=== PATIENT | female | born 1995 | race Caucasian/White ===

== ENCOUNTER 2018-09-03 06:58 | Inpatient (IN) | payer OTHER ==
[~2018-09-03] VITALS: Ht 165.1 cm; Wt 64.8 kg
[~2018-09-03 06:58] MED LIST: CEPH500 PO; IBUP600 PO; IBUP800 PO; PROCODE120 PO; RXCYCL10 PO; Robaxin500 MG PO; TOBR.3OPSO OP
[2018-09-03] MEDS ORDERED: EXPECTA PRENAT1 EACH (07:50)
[2018-09-03] MEDS ORDERED: IRON150C (07:51)
[2018-09-03 08:15] LABS: BASOPHILS ABSOLUTE AUTO 0.02 K/mm3 (0.00-0.23); BASOPHILS PERCENT AUTO 0 % (0-2); EOSINOPHILS ABSOLUTE AUTO 0.07 K/mm3 (0.00-0.68); EOSINOPHILS PERCENT AUTO 0 % (0-6); Hematocrit 35.2 % (33.0-51.0); Hemoglobin 11.9 g/dL (11.5-16.0); IMMATURE GRAN PERCENT AUTO 1 % (0-1); LYMPHOCYTES ABSOLUTE AUTO 1.61 K/mm3 (0.84-5.20); LYMPHOCYTES PERCENT AUTO 9 % (21-46); MONOCYTES ABSOLUTE AUTO 1.18 K/mm3 (0.16-1.47); MONOCYTES PERCENT AUTO 6 % (4-13); Mean Corpuscular HGB 33.3 pg (26.0-34.0); Mean Corpuscular HGB Conc 33.8 g/dL (31.5-36.5); Mean Corpuscular Volume 99 fL (80-100); Mean Platelet Volume 11.7 fL (9.1-12.4); NEUTROPHILS ABSOLUTE AUTO 15.95 K/mm3 (1.96-9.15); NEUTROPHILS PERCENT AUTO 84 % (41-73); Platelet Count 236 K/mm3 (150-400); RDW Coefficient Variation 13.5 % (11.7-14.2); Red Blood Cell Count 3.57 M/mm3 (3.80-5.20); White Blood Cell Count 18.93 K/mm3 (4.00-11.30)
[2018-09-04 05:29] LABS: BASOPHILS ABSOLUTE AUTO 0.02 K/mm3 (0.00-0.23); BASOPHILS PERCENT AUTO 0 % (0-2); EOSINOPHILS ABSOLUTE AUTO 0.12 K/mm3 (0.00-0.68); EOSINOPHILS PERCENT AUTO 1 % (0-6); Hematocrit 30.8 % (33.0-51.0); Hemoglobin 10.1 g/dL (11.5-16.0); IMMATURE GRAN ABSOLUTE AUTO 0.08 K/mm3 (0.00-0.10); IMMATURE GRAN PERCENT AUTO 1 % (0-1); LYMPHOCYTES ABSOLUTE AUTO 2.52 K/mm3 (0.84-5.20); LYMPHOCYTES PERCENT AUTO 16 % (21-46); MONOCYTES ABSOLUTE AUTO 0.97 K/mm3 (0.16-1.47); MONOCYTES PERCENT AUTO 6 % (4-13); Mean Corpuscular HGB 33.4 pg (26.0-34.0); Mean Corpuscular HGB Conc 32.8 g/dL (31.5-36.5); Mean Platelet Volume 11.3 fL (9.1-12.4); NEUTROPHILS PERCENT AUTO 77 % (41-73); Platelet Count 194 K/mm3 (150-400); RDW Coefficient Variation 13.8 % (11.7-14.2); RDW Standard Deviation 51.1 fL (35.1-46.3); Red Blood Cell Count 3.02 M/mm3 (3.80-5.20); White Blood Cell Count 15.81 K/mm3 (4.00-11.30)
[2018-09-04 05:35] LABS: Mean Corpuscular Volume 102 fL (80-100)
[2018-09-04] MEDS ORDERED: IBUP800 PO (08:23)
--- NOTE | 2018-09-04 14:55 | NUR ---
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 PT CHOOSE TO AMBULATE OUT, HAS BEEN OUT MANY TIMES TO SMOKE. DECLINES ANY QUESITONS, ENCOURAGED TO CALL DR NICOLE FOR ANYTHING, THIS IS A PRIVATE ADOPTION, DISCUSSED DEPRESSION AND COUNSELING IF NEEDS IT, TO FOLLOW UP WITH DR NICOLE IN 2 WEEKS
== END 2018-09-04 14:55 | disposition home or self-care (01) | DRG 807 ==
LOC: OBS 06:58 → BC 06:58 → OBS 07:31 → BC 07:31
PROVIDERS: ADMIT Obstetrics & Gynecology
PROC: 10E0XZZ Delivery of Products of Conception, External Approach (ICD-10-PCS; principal; 2018-09-03)
PROC: 3E0234Z Introduction of Serum, Toxoid and Vaccine into Muscle, Percutaneous Approach (ICD-10-PCS; 2018-09-03)
DX: O80 Encounter for full-term uncomplicated delivery (principal); Z37.0 Single live birth; Z3A.39 39 weeks gestation of pregnancy
CPT/HCPCS: 36415; 51702; 85025; J1885; J2001; J2210; J2590; J3010; J7120

== ENCOUNTER → 2019-10-16 | Outpatient (CLI) | payer OTHER ==
[~2019-10-16] MED LIST changes: +EXPECTA PRENAT1 EACH; +IRON150C
[2019-10-20 14:07] LABS: HPV 16 Positive (Negative); HPV 18 Negative (Negative); HPV OTHER HR TYPES Negative (Negative)
== END ==
LOC: LAB 16:40 → LAB SHORT 16:40
PROVIDERS: Obstetrics & Gynecology
DX: R87.610 Atypical squamous cells of undetermined significance on cytologic smear of cervix (ASC-US) (principal); R87.810 Cervical high risk human papillomavirus (HPV) DNA test positive
CPT/HCPCS: 87624; 88142

== ENCOUNTER 2020-08-21 11:52 | Emergency (ER) | payer OTHER ==
[~2020-08-21] VITALS: Ht 165.1 cm; Wt 58.1 kg
[2020-08-21] MEDS ORDERED: HYDR1TAB94 PO (14:14)
[2020-08-21] MEDS ORDERED: CEFP200 PO (14:14)
[2020-08-21] MEDS ORDERED: PROM25 PO (14:14)
[2020-08-21] MEDS ORDERED: IBUP600 PO (14:14)
[2020-08-21] MEDS ORDERED: ONDA4ODT MM (14:14)
== END 2020-08-21 14:33 | disposition home or self-care (01) ==
LOC: ER 11:52
DX: N12 Tubulo-interstitial nephritis, not specified as acute or chronic (principal); F17.210 Nicotine dependence, cigarettes, uncomplicated; Z91.02 Food additives allergy status
CPT/HCPCS: 74176; 96365; 96375; 99284-25; A9270; J0696; J2405; J7030

== ENCOUNTER 2024-03-01 17:27 | Observation (INO) | payer OTHER ==
[~2024-03-01] VITALS: Ht 165.1 cm; Wt 54.4 kg
[~2024-03-01 17:27] MED LIST changes: +CEFP200 PO; +HYDR1TAB94 PO; +ONDA4ODT MM; +PROM25 PO
[2024-03-01] MEDS ORDERED: NS 1,000 ML IV SCH ×2 (17:50→21:30)
[2024-03-01 18:49] LABS: BASOPHILS ABSOLUTE AUTO 0.04 K/mm3 (0.00-0.23); BASOPHILS PERCENT AUTO 0 % (0-2); EOSINOPHILS ABSOLUTE AUTO 0.29 K/mm3 (0.00-0.68); EOSINOPHILS PERCENT AUTO 3 % (0-6); Hematocrit 39.5 % (33.0-51.0); Hemoglobin 13.3 g/dL (11.5-16.0); IMMATURE GRAN ABSOLUTE AUTO 0.03 K/mm3 (0.00-0.10); IMMATURE GRAN PERCENT AUTO 0 % (0-1); LYMPHOCYTES ABSOLUTE AUTO 2.94 K/mm3 (0.84-5.20); LYMPHOCYTES PERCENT AUTO 26 % (21-46); MONOCYTES ABSOLUTE AUTO 0.88 K/mm3 (0.16-1.47); MONOCYTES PERCENT AUTO 8 % (4-13); Mean Corpuscular HGB 32.4 pg (26.0-34.0); Mean Corpuscular HGB Conc 33.7 g/dL (31.5-36.5); Mean Corpuscular Volume 96 fL (80-100); Mean Platelet Volume 10.9 fL (9.1-12.4); NEUTROPHILS PERCENT AUTO 64 % (41-73); Platelet Count 251 K/mm3 (150-400); RDW Coefficient Variation 12.5 % (11.7-14.2); RDW Standard Deviation 45.4 fL (35.1-46.3); White Blood Cell Count 11.48 K/mm3 (4.00-11.30)
[2024-03-01 19:04] LABS: Source, Urine Clean Catch
[2024-03-01 19:13] LABS: Appearance, Urine Hazy (Clear); Bilirubin, Urine Neg (Neg); Blood, Urine 2+ (Neg); Color, Urine Yellow (P-Yellow); Glucose Qualitative, Urine Neg (Neg); Ketones, Urine 1+ (Neg); Leukocyte Esterase, Urine 1+ (Neg); Nitrite, Urine Neg (Neg); Protein, Urine Neg (Neg); Specific Gravity, Urine 1.025 (1.003-1.022); Urobilinogen, Urine 1+ (Normal)
[2024-03-01 19:24] LABS: Calcium Oxalate Crystals Many /hpf; Hyaline Casts 0-2 /lpf (0-2); Mucus Light (0-Heavy)
[2024-03-01 19:25] LABS: Bacteria Few /hpf; Squamous Epithelial Cells Rare /hpf (Few)
[2024-03-01 19:41] LABS: Albumin, Blood 3.9 g/dL (3.4-5.0); Albumin/Globulin Ratio 1.4 (0.8-1.8); Bilirubin, Total 0.6 mg/dL (0.1-1.0); Bun/Creatinine Ratio 22.5 (12.0-20.0); Creatinine, Blood 0.58 mg/dL (0.40-1.00); Globulin, Blood 2.7 g/dL (2.2-4.0); Potassium, Blood 4.3 mmol/L (3.5-5.5); Total Protein, Blood 6.6 g/dL (6.4-8.2)
[2024-03-01] MEDS ORDERED: CefTRIAXone Sodium 1,000 MG in NS 50 ML IV ONE (21:40)
[2024-03-01] MEDS ORDERED: MetroNIDAZOLE 500 MG Tab PO ONE (21:40)
[2024-03-01] MEDS ORDERED: FentaNYL Citrate 50 MCG/ML 2 ML Injection IV ONE (22:20)
[2024-03-01] MEDS ORDERED: Acetaminophen 325 MG TABLET PO PRN (22:50)
[2024-03-01] MEDS ORDERED: OxyCODONE HCL 5 MG TAB PO PRN (22:50)
[2024-03-01] MEDS ORDERED: HYDROmorphone HCl/Pf 1MG SYR IV PRN (22:50)
[2024-03-01] MEDS ORDERED: Lactated Ringer's 1,000 ML IV SCH (22:55)
[2024-03-01] MEDS ORDERED: Ondansetron HCl 2 MG / ML 2ML Vial IV PRN (22:55)
[2024-03-01] MEDS ORDERED: Ketorolac Tromethamine 30mg Vial IV PRN (23:00)
[2024-03-01 23:30] VITALS: BP 122/82
[2024-03-01] MEDS ORDERED: AMOCLA875 PO (23:49)
== END 2024-03-01 23:57 | disposition left against medical advice (07) ==
LOC: ER 17:27 → ERHOLD 17:28
PROVIDERS: Student in an Organized Health Care Education/Training Program; ADMIT Surgery
DX: K81.0 Acute cholecystitis (principal); F17.200 Nicotine dependence, unspecified, uncomplicated; D72.829 Elevated white blood cell count, unspecified; Z53.29 Procedure and treatment not carried out because of patient's decision for other reasons
CPT/HCPCS: 76705; 80053; 81001; 81025; 83690; 85025; 87077; 87086; 87186; 96361; 96365; 96375; 99285-25; A9270; G0378; J0696; J3010; J7030